=== PATIENT | male | born 1935 | race Caucasian/White ===

== ENCOUNTER → 2016-02-19 | Outpatient (CLI) | payer OTHER ==
[~2016-02-19] VITALS: Ht 177.8 cm; Wt 83.2 kg
[~2016-02-19] MED LIST: ALEVE220 MG PO; AMBIEN PO; AMLODIPINE BESY10 MG PO; ASPIR 8181 MG PO; ASPIR-LOW81 MG PO; ATORVASTATIN CA40 MG PO; CARDURA1 MG PO; CELEBREX 200 M200 MG PO; CENTRUM SILVER1 EAC4 PO; COZAAR 25 MG TA25 M1 PO; COZAAR 50 MG TA50 M2 PO; DILAUDID 2 MG TA2 MG PO; DOXAZOSIN MESYLA1 MG PO; ENDOCET 5-3251 EACH PO; FENTANYL PA25 MCG/HR TRANSDERM; FISH OIL 1,001000 M2 PO; HYDROCODON-ACE1 EAC5 PO; HYDROCODONE-AP1 EAC6 PO; HYDROXYCHLOROQ200 M1 PO; HYDROXYZINE HCL10 M1 PO; LOTEMAX3.5 GM OPHTHALMIC; MIRAPEX 0.250.25 M1 PO; MORPHINE SULFAT30 M4 PO; MS CONTIN30 MG PO; NEURONTIN 300300 M1 PO; NORCO 10-325 T1 EACH PO; NORVASC2.5 MG PO; NORVASC5 MG PO; OPANA ER15 M1 PO; OPANA ER30 M1 PO; OPANA ER7.5 M1 PO; OXYCODONE-ACET1 EACH PO; OXYCONTIN10 M1 PO; OXYMORPHONE HCL30 MG PO; PRESERVISION A1 EAC2 PO; PRIMIDONE50 MG PO; PROSCAR 5MG TABL5 MG PO; PROTONIX 20 MG20 M1 PO; RAPAFLO8 MG; RECLAST 55 MG/1002 IVPB; REMERON15 MG PO; ROZEREM 8 MG TAB8 M1 PO; VENLAFAXIN75 MG/1 T2 PO; VESICARE 5 MG TA5 MG PO; XALATAN2.5 ML OPHTHALMIC; XANAX 0.5 MG0.5 MG PO
--- NOTE | ~2016-02-19 | HPC ---
[facility] [address] [place] [address] PAIN MANAGEMENT CONSULTATION Name: GASPER CAGLE Room #: REG [facility] M..#: [id number] Admission: 02/19/16 Attend Phys: Jorje Pinedo MD Discharge: Date of : 37 Report #: [id number] THIS REPORT FOR: //name// CC: Lexx Pinedo DATE OF SERVICE: 02/19/2016 Followup visit to discuss a psych evaluation prior to spinal cord stimulation trial, a thirty minute consultation with the patient and his . The patient returns to pain clinic today with his for a long discussion again about spinal cord stimulation trial. He has received preauthorization approval for the procedure and a psychological evaluation by Dr. Ruthie Schulz was performed on 01/30/2016. I made a copy of it and shared it with the patient. Based upon her evaluation, she is supportive of him moving forward with the stimulator. She acknowledges an extensive psychiatric history with depression over the years and I would also add that having known him now for a period of time, he is anxious and struggles with the changes that have occurred in his spine over the years with some difficulty accepting aging process. We discussed what the spinal cord stimulation can accomplish and what it does not in order to properly align his expectations. He spent a great deal of time today discussing his unhappiness with his scoliosis and kyphotic posture to the extent that pain relief may allow him to stand up straighter for a longer period of time. He may ____ some small improvement, but I have repeatedly told him that it will not dramatically change his posture and will certainly not do anything with the degenerative scoliosis that he has. Our hope is that it provides relief of the pain across his low back that originally brought him to the pain clinic. He does not complain of significant neuropathic ____, so I would put him in the category of fair as a prediction of his response. If he does not have a substantial improvement in his symptoms over the 7-day period, I told him that I would not encourage him to go forward with placement. I do think that there is some hope that this will provide meaningful improvement or we would of course not go forward with the trial. We then spent a great deal of time discussing the actual process of trial lead implant the week of the trial and I answered many questions about permanent implant, risks and benefits. These were detailed as his took notes. He asked many questions, all answered before he was discharged from the clinic. I have also reviewed his MRI of the thoracic spine, which shows some disk space narrowing at T10-T11, flattening the ventral thecal sac. This could possibly result in some challenges in lead placement but we will hopefully be able to [address] [address] PAIN MANAGEMENT CONSULTATION Name: GASPER CAGLE LAMAR Room #: REG [facility] Escobar#: [id number] Admission: 02/19/16 Attend Phys: Jorje Pinedo MD Discharge: Date of : 37 Report #: [id number] advance the lead into a good location at T9, T8. A followup visit is now scheduled for a trial lead placement in the next 1-2 weeks. This visit was informational and counseling session only. <ELECTRONICALLY SIGNED> By: Jorje Pinedo MD 03/21/16 1130 1619 [id number] Jorje Pinedo MD /nt
[2016-02-19 14:09] VITALS: BP 125/87
== END | disposition home or self-care (01) ==
LOC: PAIN 07:06
DX: M54.5 Low back pain (principal); M41.86 Other forms of scoliosis, lumbar region; G89.29 Other chronic pain; Z87.891 Personal history of nicotine dependence

== ENCOUNTER → 2016-10-19 | Outpatient (CLI) | payer OTHER ==
[~2016-10-19] VITALS: Ht 177.8 cm; Wt 86.1 kg
--- NOTE | ~2016-10-19 | HPC ---
[facility] [address] [place] [address] PAIN MANAGEMENT CONSULTATION Name: GASPER CAGLE [facility] [id number] Admission: 10/19/16 Attend Phys: Jorje Pinedo MD Discharge: Date of : 37 Report #: [id number] THIS REPORT FOR: //name// CC: Lexx Pinedo DATE OF SERVICE: 10/19/2016 DATE OF REGISTRATION: 10/19/2016 Followup visit for low back pain related to spondylosis, bilateral lower extremity pain, status post knee replacement. The patient is here today for spinal cord stimulation trial. We have discussed this on several previous visits. He has been provided with information review, many questions have been answered. He continues to report pain at the level of 8/10, constant. He has tried nearly all options. MEDICATIONS: Alprazolam, amlodipine, aspirin, atorvastatin, doxazosin, hydrochloroquine, losartan, mirtazapine, Myrbetriq, pantoprazole, pramipexole, primidone, Rapaflo, Rozerem, venlafaxine. ALLERGIES: None. PAST MEDICAL HISTORY: Significant for chronic back pain with rotational scoliosis, osteoarthritis, status post bilateral knee replacements, fibromyalgia, and a history of severe depression, which has been treated in the past with ECT. The patient also is hypertensive, has gastroesophageal reflux and benign prostatic hypertrophy. PHYSICAL EXAMINATION: GENERAL: Pleasant, slightly anxious. VITAL SIGNS: Blood pressure 133/91, heart rate 78, BMI 27. CHEST: Clear. CARDIAC: Rhythm is regular. ABDOMEN: Soft. SPINE: Reveals rotational scoliosis and tenderness across the lumbosacral segment. Pain with forward flexion, extension, some radiating pain into the hips. No pain into the calf or ankle at this time. IMPRESSION: 1. Chronic back pain related to scoliosis. 2. Osteoarthritis. 3. History of depression. PLAN: Spinal cord stimulation trial. He would like to avoid taking stronger [facility] [address] [place] [address] PAIN MANAGEMENT CONSULTATION Name: GASPER CAGLE Room #: REG [facility].#: [id number] Admission: 10/19/16 Attend Phys: Jorje Pinedo MD Discharge: Date of : 37 Report #: [id number] pain medication. PROCEDURE: The patient was taken to the fluoroscopic suite, he was placed prone, he was prepped and draped in the usual fashion. We began first on the right. Skin was anesthetized and a 14-gauge Tuohy type curved epidural needle was advanced into the epidural space at T12-L1. No blood or CSF was aspirated. A 3 mL of normal saline was injected into the epidural space distant. It was then followed by the first [employer] Octad spinal cord stimulation lead V-A1 [id number]. Good position was confirmed to the right of midline and stimulation patterns demonstrated a right-sided lead placement, tip of the lead resting at roughly mid T8. Skin was then anesthetized on the left and a second needle was advanced into the epidural space at the same interspace T12-L1 on the first attempt. No blood or CSF was aspirated. Again, 2 mL of normal saline injected through the needle and the second lead was advanced easily on the first attempt parallel to the initial lead. Tip of this lead was staggered roughly 1 cm below with the tip resting at the lower portion of the T8. Stimulation patterns showed good midline coverage, slightly more to the left bilateral coverage without the second lead. Lead placement was felt to be adequate for back coverage, using highest frequency stimulation and the needles and stylets were removed. The leads were secured and placed with Mastisol and OpSite dressing and an occlusive dressing was placed over the top of the entire area. He tolerated the procedure well and was taken to recovery room and initial reprogramming sessions were performed by [employer] representatives. There were no complications. The patient is scheduled to return in 5 days. We will keep in touch this week by phone. By: [id number] [id number] Jorje Pinedo MD /nt
[2016-10-19 07:25] VITALS: BP 133/91
== END ==
LOC: PAIN 06:51
DX: M41.87 Other forms of scoliosis, lumbosacral region (principal); G89.29 Other chronic pain; M47.896 Other spondylosis, lumbar region; I10 Essential (primary) hypertension; N40.0 Benign prostatic hyperplasia without lower urinary tract symptoms; M79.7 Fibromyalgia; M19.90 Unspecified osteoarthritis, unspecified site; F32.89 Other specified depressive episodes; K21.9 Gastro-esophageal reflux disease without esophagitis; Z79.82 Long term (current) use of aspirin; Z79.899 Other long term (current) drug therapy; Z96.653 Presence of artificial knee joint, bilateral; Z79.891 Long term (current) use of opiate analgesic

== ENCOUNTER → 2016-10-23 | Outpatient (CLI) | payer OTHER ==
[~2016-10-23] VITALS: Ht 177.8 cm; Wt 87.2 kg
--- NOTE | ~2016-10-23 | HPC ---
[facility] [place] [address] [place] [address] PAIN MANAGEMENT CONSULTATION Name: GASPER CAGLE Room #: REG [facility] [id number] Admission: 10/23/16 Attend Phys: Naif Justice, DO Discharge: Date of : 37 Report #: [id number] THIS REPORT FOR: //name// CC: Lexx Justice The patient is a 81-year-old gentleman, had a spinal cord stimulator trial with Dr. Jorje Pinedo 10/19/2016. He returns to pain clinic today. He was actually seen yesterday, leads were imaged, one lead was somewhat right of midline contacting the inferior aspect of the T8 vertebra, the other lead was right at midline at mid T10. The patient had stimulator yesterday. He returns to pain clinic today. Unfortunately, he notes really no change in symptoms. He states he was unable to do any more activity and states his pain remained constant throughout the trial. This is deemed to be not a successful trial. Leads were removed today, the patient will follow up with Dr. Pinedo as needed for further pain management concerns. We will not be referring on for spinal cord stimulator implant. PHYSICAL EXAMINATION: Today is unremarkable. Gait is tandem. Blood pressure 162/92, pulse 82, respirations are 18, he is afebrile, and BMI is 27.6 kg/m2. The patient was placed prone. The sterile dressing was removed. The leads were withdrawn, the tips were intact. The insertion sites look good. No signs of inflammation, infection, or induration. Area was cleansed, Band-Aids applied. The patient was discharged in stable condition. By: 1150 [id number] Naif Justice DO /nt
[2016-10-23 11:16] VITALS: BP 162/92
== END | disposition home or self-care (01) ==
LOC: PAIN 07:49
DX: M54.5 Low back pain (principal); G89.29 Other chronic pain; F41.8 Other specified anxiety disorders; Z98.890 Other specified postprocedural states; Z79.899 Other long term (current) drug therapy; Z87.891 Personal history of nicotine dependence; Z79.891 Long term (current) use of opiate analgesic; Z79.82 Long term (current) use of aspirin

== ENCOUNTER → 2017-02-11 | Outpatient (CLI) | payer OTHER ==
[~2017-02-11] VITALS: Ht 177.8 cm; Wt 83.5 kg
[~2017-02-11] MED LIST changes: +BUTRANS1 EAC1 TRANSDERM
--- NOTE | ~2017-02-11 | HPC ---
[facility] [address] [place] [address] PAIN MANAGEMENT CONSULTATION Name: GASPER CAGLE Room #: REG [facility] AkilahDebbieKevin.#: [id number] Admission: 02/11/17 Attend Phys: Jorje Pinedo MD Discharge: Date of : 37 Report #: [id number] THIS REPORT FOR: //name// CC: BERNADINE Pinedo DATE OF SERVICE: 02/11/2017 Followup visit for chronic back pain with severe scoliosis. HISTORY OF PRESENT ILLNESS: The patient returns to pain clinic today for 15-20 minute followup visit. We spent some time counseling. We talked about different measures to help with his back. I referred him back to physical therapy for scoliosis, diffuse osteoarthritis in knees, bilateral knee replacements in the past. We reviewed medications options. He does poorly with many of the stronger medications. He has not had a trial of Butrans and I have initiated that trial today 5 mcg patch q. 7 days. PHYSICAL EXAMINATION: He is a pleasant gentleman. Pain is 0 at sitting and 7 with walking. He has tenderness across his low back, tenderness bilaterally in the knees. He has marked scoliosis. He walks with a broad-based waddling gait. He has a spinal cord stimulator in place. This has helped with his radicular pain. He has some pain across his low back. IMPRESSION: 1. Chronic low back pain. 2. Osteoarthritis. 3. History of depression. 4. Management of high risk medication. PLAN: Trial of Butrans is offered. Medications are extensive and have been rejected. The nurses and I will see what we can do to get the coverage for a trial of this medication for him. Side effects of the medications reviewed. We have seen much less side effect in the way of constipation, which has been a problem for him in the past. Hopefully, he will be able to tolerate the medication. We will see him back in the pain clinic shortly. <ELECTRONICALLY SIGNED> By: Jorje Pinedo MD 04/07/17 1640 1533 [id number] Jorje Pinedo MD /nt
[2017-02-11 11:21] VITALS: BP 164/97
== END ==
LOC: PAIN 07:09
DX: M17.0 Bilateral primary osteoarthritis of knee (principal); Z79.899 Other long term (current) drug therapy; Z96.653 Presence of artificial knee joint, bilateral

== ENCOUNTER → 2018-01-03 | Outpatient (CLI) | payer OTHER ==
[~2018-01-03] VITALS: Ht 177.8 cm; Wt 81.6 kg
[~2018-01-03] MED LIST changes: +MYRBETRIQ50 MG PO
--- NOTE | ~2018-01-03 | HPC ---
[facility] [address] [place] [address] PAIN MANAGEMENT CONSULTATION Name: GASPER CAGLE Room #: [facility] [id number] Admission: 01/03/18 Attend Phys: Jorje Pinedo MD Discharge: Date of : 37 Report #: [id number] THIS REPORT FOR: //name// CC: Lexx Pinedo DATE OF SERVICE: 01/03/2018 Followup visit for weakness of the lower extremities. The patient does not have any pain. He complains today mostly of his fatigue and his inability to maintain weightbearing activities for more than a few minutes. Simply walking from the car today was enough to cause his legs to be tired. He does not describe this as pain. He has significant scoliosis of the spine and although he had new x-rays that he plans to take to the neurosurgeon's office next week, he did not bring them with him today. Apparently, cervical and lumbar MRI were performed. I would not be surprised to find significant neuroforaminal narrowing at multiple levels throughout the lumbar spine as we have seen in the past. 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 It is intermittent. He went to the [facility] for a skin disorder. He has lesions on his arms and is constantly scratching and itching. I did not get a clear answer on the [facility] assessment of this condition. No specific changes were provided for this skin disorder. He suffers from chronic depression and is on venlafaxine 75 mg 5 tablets daily as well as alprazolam for anxiety. He is on a statin drug, pravastatin and Protonix. PHYSICAL EXAMINATION: An anxious 82-year-old gentleman. He is 5 feet 10 inches, 179 pounds, BMI is 25.8. He scores his pain as 0 throughout his visit. Blood pressure is 160/87, heart rate is 88, respirations 16. He is able to move independently from sitting to standing position. He walks bent forward at the waist. He cannot straighten up easily. Examination of the spine reveals a dextrorotation throughout the thoracolumbar spine. There is tenderness throughout the lumbar segment, but this is mild and not enough to require specific treatment at this time. He has no focal weakness in the lower extremities. Hip flexion, leg extension, plantar and dorsiflexion of the feet all checked out to be fairly normal with a static exam. Sensation is intact. Deep tendon reflexes are absent in knees and ankles. [address] [address] PAIN MANAGEMENT CONSULTATION Name: GASPER CAGLE Room #: REG [facility] Luz#: [id number] Admission: 01/03/18 Attend Phys: Jorje Pinedo MD Discharge: Date of : 37 Report #: [id number] IMPRESSION: 1. Thoracolumbar scoliosis with spondylosis. 2. Bilateral lower extremity weakness. 3. 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 4. History of severe chronic anxiety and depression. RECOMMENDATIONS: 1. I referred him back to Physical Therapy, which he has requested 2 visits per week for 10 weeks and he can continue at home. I have targeted therapeutic exercise, isometric exercises for strength training, gait training and a home program. 2. Follow up visit only as needed. This is not a problem though. By: [id number] Jorje Pinedo MD /nt
[2018-01-03 14:44] VITALS: BP 160/87
== END ==
LOC: PAIN 00:42
DX: M47.815 Spondylosis without myelopathy or radiculopathy, thoracolumbar region (principal); M41.85 Other forms of scoliosis, thoracolumbar region; F32.9 Major depressive disorder, single episode, unspecified; F41.9 Anxiety disorder, unspecified; G25.9 Extrapyramidal and movement disorder, unspecified; Z79.899 Other long term (current) drug therapy

== ENCOUNTER → 2018-10-17 | Outpatient (CLI) | payer OTHER ==
[~2018-10-17] VITALS: Ht 177.8 cm; Wt 79.8 kg
[~2018-10-17] MED LIST changes: +CALCITRIOL0.5 MCG PO; +PRESERVISION A1 EACH PO; +VESICARE10 M1 PO
--- NOTE | ~2018-10-17 | HPC ---
[facility] [address] [place] [address] PAIN MANAGEMENT CONSULTATION Name: GASPER CAGLE Room #: REG [facility] [id number] Admission: 10/17/18 ������������������ Attend Phys: Jorje Pinedo MD Discharge: ������������������ Date of : 37 Report #: [id number] THIS REPORT FOR: //name// CC: Lexx Pinedo DATE OF SERVICE: 10/17/2018 Followup visit for chronic low back pain. The patient returns to pain clinic today hoping for an injection. He has pain across his low back radiating into the right flank. It does not radiate into his leg, but it does go into the hip. He is not currently taking pain medication. He follows with Dr. Lexx Villalpando. PQRS REVIEW: 1. He has a history of diffuse spinal spondylosis with scoliosis. Degenerative facet arthropathy and arthritis. 2. BMI is 25.8. 3. Vital signs: Blood pressure 160/87, heart rate 88, respirations 16. 4. Pain intensity 0 at rest, worse with morning and movement. 5. He needs help walking and standing due to his scoliosis, but has not fallen in the last 3 months. 6. The patient is not on blood thinning medications. 7. He has a history of hypertension and is treated by Dr. Villalpando. All medications were reviewed and reconciled, including his antihypertensives and centrally acting medications for anxiety, depression and pain. He is on amlodipine. 8. He has signed an opioid agreement in our clinic, but is no longer on medication. 9. Opioid risk tool has been completed with a score of 1-2. He denies use of tobacco, drinks alcohol on occasion. PHYSICAL EXAMINATION: GENERAL: This is a pleasant, anxious 83-year-old gentleman. VITAL SIGNS: As noted above. Moves independently from sitting to standing position. His gait is antalgic. He has marked scoliosis as noted and leans to the right as he ambulates. HEENT: Normal. Pupils equal, round, react to light. EOMs are intact. Mucous membranes are moist. NECK: Supple. CHEST: Clear to auscultation. CARDIAC: Regular rate and rhythm without audible murmur. [facility] [address] [place] [address] PAIN MANAGEMENT CONSULTATION Name: GASPER CAGLE Room #: REG [facility].#: [id number] Admission: 10/17/18 ������������������ Attend Phys: Jorje Pinedo MD Discharge: ������������������ Date of : 37 Report #: [id number] ABDOMEN: Soft. MUSCULOSKELETAL: Scoliosis of the lumbar spine with radiating pain underneath the subcostal margin that radiates in a radicular pattern on L3-L4 as well as L1-L2. Tenderness along the paravertebral musculature. Lower extremities revealed no evidence of weakness. Deep tendon reflexes are bilaterally absent at ankles and knees. Straight leg raising is negative. IMPRESSION: 1. Thoracolumbar scoliosis with severe spondylosis. 2. History of chronic anxiety and depression. PLAN: 1. Continue with physical therapy as recommended last year and regular exercise. 2. Follow up with Dr. Villalpando for medication management. 3. Lumbar epidural steroid injection, L2-L3, under fluoroscopic guidance. DESCRIPTION OF PROCEDURE: He was taken to fluoroscopic suite for treatment, placed prone, skin prepped with ChloraPrep. Skin anesthetized over the L2-L3 interspace. This is the apex of his curvature. A 20-gauge Tuohy epidural needle was advanced at first attempt in the epidural space with [id number] technique. There was no blood or CSF aspirated. A 1 mL of Omnipaque injected. Good spread of dye observed in the epidural space followed by 3 mL of 0.5% lidocaine mixed with 80 mg of triamcinolone. He tolerated the procedure well and was observed for 45 minutes and discharged. Follow up as needed. ��������������������������������������������� ���������������������������������������� By: ��������������������������������������������� 1716 0130 Jorje Pinedo MD /nt
--- NOTE | ~2018-10-17 | HPC ---
[facility] [address] [place] [address] PAIN MANAGEMENT CONSULTATION Name: GASPER CAGLE Room #: REG [facility] Tiffanie.#: [id number] Admission: 10/17/18 ������������������ Attend Phys: Jorje Pinedo MD Discharge: ������������������ Date of : 37 Report #: [id number] THIS REPORT FOR: //name// CC: Lexx Pinedo DATE OF SERVICE: 10/17/2018 Followup visit for chronic low back pain and weakness in the lower extremities. The patient returns with increased complaining of pain in the low back, radiates along the right thigh. There is some radiation to the hip, but not into the leg. He scores it as a 3/10. It is worse with standing or walking and also worse in the morning. Once he is up and moving, he seems to do a little bit better, not here today for medication, but hopeful that we might provide an injection for relief. PQRS REVIEW: 1. He has history of diffuse spinal pain with spondylosis and arthritis of multiple facet DICTATION ENDS HERE ��������������������������������������������� ���������������������������������������� By: ��������������������������������������������� 1711 0115 Jorje Pinedo MD /nt
[2018-10-17 13:13] VITALS: BP 131/70
--- NOTE | 2018-10-17 13:26 | NUR ---
Pain Clinic Assessment: 1. History of Osteoarthritis: SPINE KNEES History of Rheumatoid Arthritis: Not Applicable 2. Height: 5 ft. 10 in. 177.8 cm. Weight: 176.0 lb. oz. 79.833 kg. Patient's BMI: 25.3 3. Vital Signs: BP: 131/70 Pulse: 80 Resp: 14 Temp: 02 Sat: 97 ECG Mon: 4. Pain Intensity: 3-4 5. Fall Risk: Dizziness: N Needs help standing or walking: N Fallen in the last 3 months: Y Fall risk comments: 6. Patient on Blood Thinner: None 7. History of Hypertension: Y 8. Opioid Therapy greater than 6 weeks: Y Opiate Contract Signed: 10/16/15 9. Risk Assessment Tool Provided: 1-LOW 10. Functional Assessment Tool: 11. Recreational Drug Use: Never Drug Type: Tobacco Use: Former Smoker Tobacco Type: Amount or Packs/day: How Many Years: Alcohol Use: Yes Frequency: Special Occasions Quant: 1
== END | disposition home or self-care (01) ==
LOC: PAIN 06:50
DX: M54.16 Radiculopathy, lumbar region (principal); G89.29 Other chronic pain; M41.85 Other forms of scoliosis, thoracolumbar region; M47.896 Other spondylosis, lumbar region; I10 Essential (primary) hypertension; F32.89 Other specified depressive episodes; F41.8 Other specified anxiety disorders; Z98.890 Other specified postprocedural states; Z87.891 Personal history of nicotine dependence; Z79.82 Long term (current) use of aspirin; Z79.899 Other long term (current) drug therapy